=== PATIENT | female | born 1935 | race Caucasian/White ===

== ENCOUNTER → 2016-11-13 | Outpatient (CLI) | payer OTHER, BC | LOC: FIMAGING 10:47 | DX: Z12.31 Encounter for screening mammogram for malignant neoplasm of breast (principal) | CPT/HCPCS: G0202 ==

== ENCOUNTER → 2016-12-09 | Outpatient (CLI) | payer OTHER, BC | LOC: FIMAGING 11:46 | PROVIDERS: ATTEND Internal Medicine Critical Care Medicine | DX: R09.02 Hypoxemia (principal) ==

== ENCOUNTER 2017-09-24 13:49 | Emergency (ER) | payer OTHER, BC ==
[2017-09-24 13:56] VITALS: RESP 18; TEMP 98.1
--- NOTE | 2017-09-24 14:39 | EDPHY ---
H & P Stated Complaint: Cough x 2 mo;saw PCP several times;wants cxr - Personal History Current Tetanus Diphtheria and Acellular Pertussis (TDAP): Yes - Medical/Surgical History Hx Asthma: Yes Hx Chronic Respiratory Disease: Yes Hx Diabetes: No Hx Cardiac Disease: No Hx Renal Disease: No Hx Cirrhosis: No Hx Alcoholism: No Hx HIV/AIDS: No Hx Splenectomy or Spleen Trauma: No Other PMH: Pulmonary HTN, Hypothyroid, Oste-Rheumatoid Arthritis, Asthma, fibromyalgia - Social History Smoking Status: Former smoker <Paul Correa - Last Filed: 09/24/17 14:38> Source: Patient <Ulysses Gallego - Last Filed: 09/24/17 15:01> Time Seen by Provider: 09/24/17 14:38 Constitutional: Initial Vital Signs Temperature (C) 36.7 C 09/24/17 13:50 Heart Rate 84 09/24/17 13:50 Respiratory Rate 18 09/24/17 13:50 Blood Pressure 121/89 H 09/24/17 13:50 O2 Sat (%) 97 09/24/17 13:50 O2 Delivery Mode Nasal Cannula O2 (L/minute) 2.5 Allergies/Adverse Reactions: latex Allergy (Intermediate, Verified 09/24/17 13:49) Rash povidone-iodine [From Betadine] Allergy (Intermediate, Verified 09/24/17 13:49) Rash soap [From Betadine] Allergy (Intermediate, Verified 09/24/17 13:49) Rash Penicillins Allergy (Verified 09/24/17 13:49) rash, red and swelling Home Medications: Medication Instructions Recorded Eszopiclone [Lunesta] 3 mg PO HS 11/28/14 Furosemide [Lasix 20 MG (*)] 20 mg PO Q2D@11/28/14 Levothyroxine [Synthroid 112 mcg 112 mcg PO DAILY06 11/28/14 (*)] Potassium Cl [Klor-Con 10 meq (RX)] 10 meq PO Q2D@11/28/14 Spironolactone [Aldactone 25 MG 25 mg PO Q2D@11/28/14 (*)] traMADol [Ultram 50 mg (*)] 100 mg PO TID 11/28/14 Fluticasone/Salmeterol [Advair Hfa 12 gm IH 09/24/17 115-21 Mcg Inhaler] Tiotropium Inhaler [Spiriva 1 inh 09/24/17 Inhaler] Medical Decision Making <Paul Correa - Last Filed: 09/24/17 14:38> <Ulysses Gallego - Last Filed: 09/24/17 15:01> ED Course/Re-evaluation: CHIEF COMPLAINT: HISTORY OF PRESENT ILLNESS: must have 4 elements: Location, Quality, Severity , Duration, Timing, Context, Modifying Factors, Associated Signs and Symptoms REVIEW OF SYSTEMS: A 10 point review of systems was performed and is negative with the exception of the elements mentioned in the history of present illness. PHYSICAL EXAM: HR, BP, O2 Sat, RR. Temp noted General Appearance: Alert, well hydrated, appropriate, and non-toxic appearing. Head: Atraumatic without scalp tenderness or obvious injury Eyes: Pupils equal, round, reactive to light and accommodation, EOMI, no trauma , no injection. Ears: Clear bilaterally, no perforation, normal landmarks Nose: Atraumatic, no rhinorrhea, clear. Throat: There is no erythema or exudates, no lesions, normal tonsils, mucus membranes moist. Neck: Supple, 2+ carotid upstroke, nontender, no lymphadenopathy. Respiratory: No retractions, no distress, no wheezes, and no accessory muscle use. Lungs are clear to auscultation bilaterally. Cardiovascular: Regular rate and rhythm, no murmurs, rubs, or gallops. Bilateral carotid, radial, dorsalis pedis, and posterior tibial pulses intact. Good capillary refill all extremities. Gastrointestinal: Abdomen is soft, nontender, non-distended, no masses, no rebound, no guarding, no peritoneal signs. Musculoskeletal: Normal active ROM of all extremities, atraumatic. Neurological: Alert, appropriate, and interactive. The patient has normal DTRs and non-focal cranial nerves, motor, sensory, and cerebellar exam. Skin: No rashes, good turgor, no nodules on palpation. Past medical history: Past surgical history: Family history: Social history: DIAGNOSTICS/PROCEDURES/CRITICAL CARE TIME: DIFFERENTIAL DIAGNOSIS: MEDICAL DECISION MAKING: (Paul Correa) Departure <Paul Correa - Last Filed: 09/24/17 14:38> <Ulysses Gallego - Last Filed: 09/24/17 15:01> - Departure Referrals: Bernice Cotton MD [Primary Care Provider] - As per Instructions
[2017-09-24] MEDS ORDERED: NS 500 ML IV ONE (14:54)
[2017-09-24] MEDS ORDERED: IPRATROPIUM/ALBUTEROL 3 ML DEYVIAL IH ONE (15:00)
--- NOTE | 2017-09-24 15:02 | EDPHY ---
H & P Stated Complaint: Cough x 2 mo;saw PCP several times;wants cxr Time Seen by Provider: 09/24/17 14:38 HPI/ROS: HPI CHIEF COMPLAINT: Worsening cough x2 months HISTORY OF PRESENT ILLNESS: Patient very pleasant 81-year-old female she presents emergency room with worsening cough x2 months. She states she has been suffering from a cough for 2 months and has tried several rounds of antibiotic she initially was on azithromycin and completed that felt somewhat better, and then her symptoms returned of cough with productive sputum mainly clear but sometimes yellow no blood. She does endorse some chills and subjective fever at home. She states her cough has gotten worse over the last 2 weeks. Become more productive. Yellow in nature. She did try a trial Levaquin and prednisone that her issuing operator put her on however she stop this as she felt fatigued and depleted. She denies any chest pain. Past Medical History: COPD on oxygen 2 L. Past Surgical History: Osteoarthritis, knee surgery, left shoulder surgery Social History: Denies drugs alcohol tobacco. Remote history of tobacco use. Family History: Noncontributory ROS REVIEW OF SYSTEMS: A comprehensive 10 point review of systems is otherwise negative aside from elements mentioned in the history of present illness. Exam Constitutional appears well nontoxic triage nursing summary reviewed, vital signs reviewed, awake/alert. Eyes normal conjunctivae and sclera, EOMI, PERRLA. HENT normal inspection, atraumatic, moist mucus membranes, no epistaxis, neck supple/ no meningismus, no raccoon eyes. Respiratory bronchitic sounding cough on exam, faint wheezing bilaterally, normal breath sounds, no respiratory distress Cardiovascular rate normal, regular rhythm, no murmur, no edema, distal pulses normal. Gastrointestinal soft, non-tender, no rebound, no guarding, normal bowel sounds, no distension, no pulsatile mass. Genitourinary no CVA tenderness. Musculoskeletal bilateral lower extremity edema, no midline vertebral tenderness, full range of motion, no calf swelling, no tenderness of extremities , no meningismus, good pulses, neurovascularly intact. Skin pink, warm, & dry, no rash, skin atraumatic. Neurologic awake, alert and oriented x 3, AAOx3, moves all 4 extremities equally, motor intact, sensory intact, CN II-XII intact, normal cerebellar, normal vision, normal speech. Psychiatric normal mood/affect. Heme/Lymph/Immune no lymphadenopathy. Differential Diagnosis: Includes but is not limited to in a particular order bronchitis, reactive airway disease, pneumonia, CHF, pulmonary embolism Medical Decision Making: Plan for this patient IV establishment blood draw, chest x-ray two view to rule pneumonia, DuoNeb breathing treatment, re-evaluate. Re-evaluation: EKG interpretation by me on record in [facility] system. Impression time of EKG 1507, sinus rhythm rate of 79 left axis deviation present. No ST elevation. No ST depression. No significant T-wave abnormalities. No significant acute ischemia seen on this EKG. 1551: Re-examination at this time patient resting comfortably no acute distress. Her workup has been for bronchitis and a productive cough. The chest x-ray is unremarkable. There is no focal pneumonia. Chest x-ray and blood work reviewed with the patient. She would like to go home. Vital signs are stable. She has no ongoing hypoxia. Afebrile here. No white count. Will plan on placing on azithromycin, she also has albuterol inhaler at home, additionally place her on prednisone 60 mg for 5 days. Return precautions discussed with her she understands return if she develops worsening shortness of breath fever worsening cough. I do recommend she follows up with her issuing operator. I did recommend we try Levaquin however she states that she does not do well with Levaquin prefers azithromycin. Plan will be for azithromycin, prednisone. Close follow-up. Source: Patient - Personal History Current Tetanus Diphtheria and Acellular Pertussis (TDAP): Yes - Medical/Surgical History Hx Asthma: Yes Hx Chronic Respiratory Disease: Yes Hx Diabetes: No Hx Cardiac Disease: No Hx Renal Disease: No Hx Cirrhosis: No Hx Alcoholism: No Hx HIV/AIDS: No Hx Splenectomy or Spleen Trauma: No Other PMH: Pulmonary HTN, Hypothyroid, Oste-Rheumatoid Arthritis, Asthma, fibromyalgia - Social History Smoking Status: Former smoker Constitutional: Initial Vital Signs Temperature (C) 36.7 C 09/24/17 13:50 Heart Rate 84 09/24/17 13:50 Respiratory Rate 18 09/24/17 13:50 Blood Pressure 121/89 H 09/24/17 13:50 O2 Sat (%) 97 09/24/17 13:50 O2 Delivery Mode Nasal Cannula O2 (L/minute) 2.5 Allergies/Adverse Reactions: latex Allergy (Intermediate, Verified 09/24/17 13:49) Rash povidone-iodine [From Betadine] Allergy (Intermediate, Verified 09/24/17 13:49) Rash soap [From Betadine] Allergy (Intermediate, Verified 09/24/17 13:49) Rash Penicillins Allergy (Verified 09/24/17 13:49) rash, red and swelling Home Medications: Medication Instructions Recorded Eszopiclone [Lunesta] 3 mg PO HS 11/28/14 Furosemide [Lasix 20 MG (*)] 20 mg PO Q2D@09 11/28/14 Levothyroxine [Synthroid 112 mcg 112 mcg PO DAILY06 11/28/14 (*)] Potassium Cl [Klor-Con 10 meq (RX)] 10 meq PO Q2D@11/28/14 Spironolactone [Aldactone 25 MG 25 mg PO Q2D@09 11/28/14 (*)] traMADol [Ultram 50 mg (*)] 100 mg PO TID 11/28/14 Azithromycin [Zithromax] 250 mg PO DAILY #6 tab 09/24/17 Fluticasone/Salmeterol [Advair Hfa 12 gm 09/24/17 115-21 Mcg Inhaler] Tiotropium Inhaler [Spiriva 1 inh 09/24/17 Inhaler] predniSONE 60 mg PO DAILY #15 tab 09/24/17 Medical Decision Making - Diagnostics Imaging Results: Imaging Impressions Chest X-Ray 09/24/17 14:54 Impression: 1. Findings most consistent with airways disease are seen with no superimposed pneumonia identified. 2. See above report for additional findings. - Data Points Laboratory Results: Laboratory Results 09/24/17 15:12 09/24/17 15:12 09/24/17 09/24/17 09/24/17 15:12 15:12 15:12 WBC 8.73 10^3/uL 10^3/uL (3.80-9.50) RBC 4.28 10^6/uL 10^6/uL (4.18-5.33) Hgb 13.2 g/dL g/dL (12.6-16.3) Hct 38.8 % % (38.0-47.0) MCV 90.7 fL fL (81.5-99.8) MCH 30.8 pg pg (27.9-34.1) MCHC 34.0 g/dL g/dL (32.4-36.7) RDW 13.9 % % (11.5-15.2) Plt Count 236 10^3/uL 10^3/uL (150-400) MPV 9.2 fL fL (8.7-11.7) Neut % (Auto) 60.9 % % (39.3-74.2) Lymph % (Auto) 21.2 % % (15.0-45.0) [place] % (Auto) 13.3 % H % (4.5-13.0) Eos % (Auto) 3.3 % % (0.6-7.6) Baso % (Auto) 0.5 % % (0.3-1.7) Nucleat RBC Rel Count 0.0 % % (0.0-0.2) Absolute Neuts (auto) 5.32 10^3/uL 10^3/uL (1.70-6.50) Absolute Lymphs (auto) 1.85 10^3/uL 10^3/uL (1.00-3.00) Absolute Monos (auto) 1.16 10^3/uL H 10^3/uL (0.30-0.80) Absolute Eos (auto) 0.29 10^3/uL 10^3/uL (0.03-0.40) Absolute Basos (auto) 0.04 10^3/uL 10^3/uL (0.02-0.10) Absolute Nucleated RBC 0.00 10^3/uL 10^3/uL (0-0.01) Immature Gran % 0.8 % % (0.0-1.1) Immature Gran # 0.07 10^3/uL 10^3/uL (0.00-0.10) PT 13.3 SEC SEC (12.0-15.0) INR 0.99 (0.83-1.16) APTT 24.9 SEC SEC (23.0-38.0) Sodium 139 mEq/L mEq/L (135-145) Potassium 3.7 mEq/L mEq/L (3.5-5.2) Chloride 95 mEq/L L mEq/L (97-110) Carbon Dioxide 35 mEq/l H mEq/l (22-31) Anion Gap 9 mEq/L mEq/L (8-16) BUN 18 mg/dL mg/dL (7-23) Creatinine 0.7 mg/dL mg/dL (0.6-1.0) Estimated GFR > 60 Glucose 98 mg/dL mg/dL (70-100) Calcium 8.7 mg/dL mg/dL (8.5-10.4) Magnesium 1.8 mg/dL mg/dL (1.6-2.3) Creatine Kinase 38 IU/L IU/L (0-156) CK-MB (CK-2) Fraction 1.07 ng/mL ng/mL (0.00-3.19) Troponin I 0.020 ng/mL ng/mL (0.000-0.034) NT-Pro-B Natriuret Pep 457 pg/mL H pg/mL (0-450) Medications Given: Discontinued Medications Albuterol/Ipratropium (Duoneb) 3 ml IH EDNOW ONE Stop: 09/24/17 15:01 Last Admin: 09/24/17 15:26 Dose: 3 ml Sodium Chloride (Ns) 500 mls @ 1,000 mls/hr IV EDNOW ONE PRN Reason: Protocol Stop: 09/24/17 15:23 Last Admin: 09/24/17 15:26 Dose: 500 mls Departure - Departure Disposition: Home, Routine, Self-Care Clinical Impression: Bronchitis Condition: Good Instructions: Acute Bronchitis (ED) Additional Instructions: 1. Return emergency room if he develops worsening shortness of breath, pain, fever vomiting or not feeling well. 2. Antibiotics as prescribed. 3. Follow up with your primary care or issuing operator. Referrals: Bernice Cotton MD [Primary Care Provider] - As per Instructions Prescriptions: Azithromycin [Zithromax] 250 mg PO DAILY #6 tab predniSONE 60 mg PO DAILY #15 tab
--- NOTE | 2017-09-24 15:09 | CPEKG ---
Heart Rate: 79 RR Interval: 759 P-R Interval: 148 QRSD Interval: 90 QT Interval: 392 QTC Interval: 450 P [place]: 75 QRS [place]: -49 T Wave [place]: 45 EKG Severity - OTHERWISE NORMAL ECG - EKG Impression: SINUS RHYTHM EKG Impression: LEFT AXIS DEVIATION Electronically Signed By: Ulysses Gallego 24-Sep-2017 23:13:41
[2017-09-24 15:20] LABS: PLATELET COUNT 236 10^3/uL (150-400)
[2017-09-24 15:30] LABS: INR 0.99 (0.83-1.16); PROTIME(PATIENT) 13.3 SEC (12.0-15.0)
[2017-09-24 15:33] LABS: CREATINE KINASE 38 IU/L (0-156)
[2017-09-24] MEDS ORDERED: AZITHROMYCIN 250 MG TAB PO ONE (15:46)
[2017-09-24] MEDS ORDERED: predniSONE 20 MG TAB PO ONE (15:46)
[2017-09-24 16:09] VITALS: BP 150/80; PULSE 85; O2SAT 90
== END 2017-09-24 16:16 | disposition home or self-care (01) ==
DX: J20.9 Acute bronchitis, unspecified (principal); I10 Essential (primary) hypertension; J44.9 Chronic obstructive pulmonary disease, unspecified; E86.9 Volume depletion, unspecified; Z87.891 Personal history of nicotine dependence; Z91.040 Latex allergy status
CPT/HCPCS: 71046; 93005; 99285; J7512

== ENCOUNTER → 2017-10-21 | Outpatient (CLI) | payer OTHER, BC | LOC: FIMAGING 13:26 | PROVIDERS: ATTEND Internal Medicine | DX: R60.0 Localized edema (principal) ==

== ENCOUNTER → 2017-12-08 | Outpatient (CLI) | payer OTHER, BC | LOC: FIMAGING 12:03 | PROVIDERS: ATTEND Internal Medicine | DX: Z12.31 Encounter for screening mammogram for malignant neoplasm of breast (principal) ==

== ENCOUNTER → 2018-04-05 | Outpatient (CLI) | payer OTHER, BC | LOC: BMCIMAGING 11:13 | PROVIDERS: ATTEND Internal Medicine Rheumatology | DX: M41.86 Other forms of scoliosis, lumbar region (principal); M43.16 Spondylolisthesis, lumbar region; M53.86 Other specified dorsopathies, lumbar region; M51.36 Other intervertebral disc degeneration, lumbar region; M53.3 Sacrococcygeal disorders, not elsewhere classified ==

== ENCOUNTER → 2018-05-13 | Outpatient (CLI) | payer OTHER, BC | LOC: BHFA 10:00 | PROVIDERS: ATTEND Internal Medicine Cardiovascular Disease | DX: R60.9 Edema, unspecified (principal) ==

== ENCOUNTER 2018-07-15 14:48 | Inpatient (IN) | payer OTHER, BC ==
--- NOTE | 2018-07-15 15:10 | CPEKG ---
Test Reason : OPEN Blood Pressure : / mmHG Vent. Rate : 085 BPM Atrial Rate : 084 BPM P-R Int : 141 ms QRS Dur : 079 ms QT Int : 357 ms P-R-T Axes : 070 -66 069 degrees QTc Int : 425 ms Sinus rhythm Ventricular premature complex Probable left atrial enlargement Inferior infarct, old Probable anteroseptal infarct, old Confirmed by José Miguel Thomson ([id number]) on 07/15/2018 3:10:15 PM Referred By: Confirmed By:José Miguel Thomson
--- NOTE | 2018-07-15 15:17 | EDPHY ---
H & P Stated Complaint: increasing extremity edema/hr has been faster than nl/sl sob Time Seen by Provider: 07/15/18 15:02 HPI/ROS: CHIEF COMPLAINT: Increasing edema HISTORY OF PRESENT ILLNESS: The patient is an 82-year-old female with a history of pulmonary hypertension, COPD asthma on 1-3 L oxygen at home at baseline. She reports that over the last 2-3 months she has had increasing edema in her lower legs. She has had longstanding edema in her left leg but has grown significantly worse over the last 3 months. She now has a bilaterally a little worse greater in the left and right. She had an echo done in March that she reports was normal. She denies any history of liver or kidney disease. She has been taking Lasix and spironolactone daily. No fevers. No trauma. No erythema, redness, wounds or drainage. She states that it is not painful. It does not hurt to ambulate. Only hurts to palpate or wear tight clothing. At home the patient states that her pulse oxygenation was not working correctly and that it said her heart rate was 130 and her sats were low. She states however that she did not have any symptoms and did not feel ill or any worse than usual. Here triage in in the room she is not tachycardic and not hypoxic. She states that she feels like she does not need to be here. Severity: Moderate Modifying factors: None REVIEW OF SYSTEMS: Constitutional: denies: chills, fever, recent illness, recent injury EENTM: denies: blurred vision, double vision, nose congestion Respiratory: denies: cough, shortness of breath Cardiac: denies: chest pain, irregular heart rate, lightheadedness, palpitations Gastrointestinal/Abdominal: denies: abdominal pain, diarrhea, nausea, vomiting, blood streaked stools Genitourinary: denies: dysuria, frequency, hematuria, pain Musculoskeletal: See HPI Skin: denies: lesions, rash, jaundice, bruising Neurological: denies: headache, numbness, paresthesia, tingling, dizziness, weakness Hematologic/Lymphatic: denies: blood clots, easy bleeding, easy bruising Immunologic/allergic: denies: HIV/AIDS, transplant 10 systems reviewed and negative except as noted EXAM: GENERAL: Well-appearing, well-nourished and in no acute distress. HEAD: Atraumatic, normocephalic. EYES: Pupils equal round and reactive to light, extraocular movements intact, sclera anicteric, conjunctiva are normal. ENT: TMs normal, nares patent, oropharynx clear without exudates. Moist mucous membranes. NECK: Normal range of motion, supple without lymphadenopathy or JVD. LUNGS: Breath sounds clear to auscultation bilaterally and equal. No wheezes rales or rhonchi. HEART: Regular rate and rhythm without murmurs, rubs or gallops. ABDOMEN: Soft, nontender, normoactive bowel sounds. No guarding, no rebound. No masses appreciated. BACK: No CVA tenderness, no spinal tenderness, step-offs or deformities EXTREMITIES: Bilateral lower extremity 2+ pitting edema left greater than right , no significant erythema, no obvious wound. Normal range of motion. No clubbing or cyanosis. NEUROLOGICAL: Cranial nerves II through XII grossly intact. Normal speech, normal gait. 5/5 strength, normal movement in all extremities, normal sensation , normal reflexes PSYCH: Normal mood, normal affect. SKIN: Warm, dry, normal turgor, no visible rashes or lesions. Source: Patient Exam Limitations: No limitations - Personal History Current Tetanus Diphtheria and Acellular Pertussis (TDAP): Yes - Medical/Surgical History Hx Asthma: Yes Hx Chronic Respiratory Disease: Yes Hx Diabetes: No Hx Cardiac Disease: No Hx Renal Disease: No Hx Cirrhosis: No Hx Alcoholism: No Hx HIV/AIDS: No Hx Splenectomy or Spleen Trauma: No Other PMH: Pulmonary HTN, Hypothyroid, Oste-Rheumatoid Arthritis, Asthma, fibromyalgia copd - Family History Significant Family History: No pertinent family hx - Social History Smoking Status: Former smoker Alcohol Use: Sober Drug Use: None Constitutional: Initial Vital Signs Temperature (C) 36.3 C 07/15/18 14:54 Heart Rate 87 07/15/18 14:54 Respiratory Rate 18 07/15/18 14:54 Blood Pressure 113/65 07/15/18 14:54 O2 Sat (%) 96 07/15/18 14:54 O2 Delivery Mode Nasal Cannula O2 (L/minute) 2 Allergies/Adverse Reactions: latex Allergy (Intermediate, Verified 09/24/17 13:49) Rash povidone-iodine [From Betadine] Allergy (Intermediate, Verified 09/24/17 13:49) Rash soap [From Betadine] Allergy (Intermediate, Verified 09/24/17 13:49) Rash Penicillins Allergy (Verified 09/24/17 13:49) rash, red and swelling Home Medications: Medication Instructions Recorded Eszopiclone [Lunesta] 3 mg PO HS 11/28/14 Furosemide [Lasix 20 MG (*)] 20 mg PO DAILY 11/28/14 Potassium Cl [Klor-Con 10 meq (RX)] 10 meq PO Q2D@09 11/28/14 Spironolactone [Aldactone 25 MG 25 mg PO DAILY 11/28/14 (*)] traMADol [Ultram 50 mg (*)] 100 mg PO TID 11/28/14 Carboxymethylcellulose Sodium 1 drop EACHEYE PRN PRN 07/15/18 [Thera Tears] Diclofenac Sodium 1% [Voltaren Gel 1 diana TP QID PRN 07/15/18 (*)] Levothyroxine [Synthroid 125 mcg 125 mcg PO DAILY06 07/15/18 (*)] Levothyroxine [Synthroid 25 mcg 25 mcg PO WESA@06 07/15/18 (*)] Multivitamins [Multivitamin (*)] 1 each PO DAILY@18 07/15/18 Sodium Cl Nasal [[place] (*)] 1 spray E[place]ARE PRN PRN 07/15/18 Umeclidinium Brm/Vilanterol Tr 1 each IH DAILY 07/15/18 [Anoro Ellipta 62.5-25 Mcg INH] Medical Decision Making - Diagnostics EKG Interpretation: An EKG obtained and was read and documented in trace view. Please see trace view for full reading and report. Sinus rhythm with PVC, no acute ischemic changes similar to previous Imaging Results: Imaging Impressions Extremity Venous Study 07/15/18 15:16 Impression: No evidence of deep vein thrombosis. José Miguel Thomson was notified of these findings by telephone at 4:08 PM on 07/15/2018 Chest X-Ray 07/15/18 15:17 Impression: 1. New patchy right middle lobe consolidation: pneumonia versus atelectasis. 2. No obvious failure. Imaging: Discussed imaging studies w/ steward/stewardess second Radiologist ED Course/Re-evaluation: Recommended admission the hospital for what is likely right heart failure in the setting of longstanding pulmonary hypertension and no increasing peripheral edema. No significant pulmonary edema appreciated. Will give a dose of Lasix and have the hospitalist service for admission. Do not suspect pneumonia. No cough. No fever. No shortness of breath. Patient and family agree with this plan. Differential Diagnosis: Partial list of the Differential diagnosis considered include but were not limited to; right heart failure, DVT, CHF, renal disease and although unlikely based on the history and physical exam, I also considered obstruction, ischemia. - Data Points Laboratory Results: Laboratory Results 07/15/18 15:14 07/15/18 15:14 07/15/18 07/15/18 07/15/18 16:40 15:14 15:14 WBC 6.97 10^3/uL 10^3/uL (3.80-9.50) RBC 4.74 10^6/uL 10^6/uL (4.18-5.33) Hgb 14.4 g/dL g/dL (12.6-16.3) Hct 44.1 % % (38.0-47.0) MCV 93.0 fL fL (81.5-99.8) MCH 30.4 pg pg (27.9-34.1) MCHC 32.7 g/dL g/dL (32.4-36.7) RDW 13.2 % % (11.5-15.2) Plt Count 238 10^3/uL 10^3/uL (150-400) MPV 9.7 fL fL (8.7-11.7) Neut % (Auto) 67.2 % % (39.3-74.2) Lymph % (Auto) 20.9 % % (15.0-45.0) [place] % (Auto) 8.6 % % (4.5-13.0) Eos % (Auto) 2.3 % % (0.6-7.6) Baso % (Auto) 0.6 % % (0.3-1.7) Nucleat RBC Rel Count 0.0 % % (0.0-0.2) Absolute Neuts (auto) 4.68 10^3/uL 10^3/uL (1.70-6.50) Absolute Lymphs (auto) 1.46 10^3/uL 10^3/uL (1.00-3.00) Absolute Monos (auto) 0.60 10^3/uL 10^3/uL (0.30-0.80) Absolute Eos (auto) 0.16 10^3/uL 10^3/uL (0.03-0.40) Absolute Basos (auto) 0.04 10^3/uL 10^3/uL (0.02-0.10) Absolute Nucleated RBC 0.00 10^3/uL 10^3/uL (0-0.01) Immature Gran % 0.4 % % (0.0-1.1) Immature Gran # 0.03 10^3/uL 10^3/uL (0.00-0.10) PT INR APTT Sodium 133 mEq/L L mEq/L (135-145) Potassium 3.6 mEq/L mEq/L (3.5-5.2) Chloride 95 mEq/L L mEq/L (97-110) Carbon Dioxide 32 mEq/l H mEq/l (22-31) Anion Gap 6 mEq/L mEq/L (6-14) BUN 18 mg/dL mg/dL (7-23) Creatinine 0.9 mg/dL mg/dL (0.6-1.0) Estimated GFR 60 Glucose 92 mg/dL mg/dL (70-100) Calcium 9.8 mg/dL mg/dL (8.5-10.4) Total Bilirubin Conjugated Bilirubin Unconjugated Bilirubin AST ALT Alkaline Phosphatase NT-Pro-B Natriuret Pep 1640 pg/mL H pg/mL (0-450) Total Protein Albumin Lipase 62 IU/L IU/L (23-300) Urine Color YELLOW Urine Appearance CLEAR Urine pH 5.0 (5.0-7.5) Ur Specific [place] 1.018 (1.002-1.030) Urine Protein NEGATIVE (NEGATIVE) Urine Ketones NEGATIVE (NEGATIVE) Urine Blood NEGATIVE (NEGATIVE) Urine Nitrate NEGATIVE (NEGATIVE) Urine Bilirubin NEGATIVE (NEGATIVE) Urine Urobilinogen NEGATIVE EU EU (0.2-1.0) Ur Leukocyte Esterase 2+ H (NEGATIVE) Urine RBC 1-3 /hpf /hpf (0-3) Urine WBC 25-50 /hpf H /hpf (0-3) Ur Epithelial Cells TRACE /lpf /lpf (NONE-1+) Urine Glucose NEGATIVE (NEGATIVE) 07/15/18 07/15/18 15:14 14:59 WBC RBC Hgb Hct MCV MCH MCHC RDW Plt Count MPV Neut % (Auto) Lymph % (Auto) [place] % (Auto) Eos % (Auto) Baso % (Auto) Nucleat RBC Rel Count Absolute Neuts (auto) Absolute Lymphs (auto) Absolute Monos (auto) Absolute Eos (auto) Absolute Basos (auto) Absolute Nucleated RBC Immature Gran % Immature Gran # PT 13.8 SEC SEC (12.0-15.0) INR 1.04 (0.83-1.16) APTT 26.5 SEC SEC (23.0-38.0) Sodium Potassium Chloride Carbon Dioxide Anion Gap BUN Creatinine Estimated GFR Glucose Calcium Total Bilirubin 0.6 mg/dL mg/dL (0.1-1.4) Conjugated Bilirubin 0.3 mg/dL mg/dL (0.0-0.5) Unconjugated Bilirubin 0.3 mg/dL mg/dL (0.0-1.1) AST 28 IU/L IU/L (14-46) ALT 19 IU/L IU/L (9-52) Alkaline Phosphatase 119 IU/L IU/L (38-126) NT-Pro-B Natriuret Pep Total Protein 8.6 g/dL H g/dL (6.3-8.2) Albumin 4.0 g/dL g/dL (3.5-5.0) Lipase Urine Color Urine Appearance Urine pH Ur Specific [place] Urine Protein Urine Ketones Urine Blood Urine Nitrate Urine Bilirubin Urine Urobilinogen Ur Leukocyte Esterase Urine RBC Urine WBC Ur Epithelial Cells Urine Glucose Medications Given: Discontinued Medications Furosemide (Lasix Injection) 40 mg IVP EDNOW ONE Stop: 07/15/18 16:55 Last Admin: 07/15/18 17:09 Dose: 40 mg Departure - Departure Disposition: [facility] Acute Clinical Impression: Lower extremity edema Condition: Fair
[2018-07-15 15:28] LABS: PLATELET COUNT 238 10^3/uL (150-400)
[2018-07-15 15:55] LABS: INR 1.04 (0.83-1.16); PROTIME(PATIENT) 13.8 SEC (12.0-15.0)
[2018-07-15] MEDS ORDERED: FUROSEMIDE 40 MG/4 ML VIAL IVP ONE (16:54)
[2018-07-15] MEDS ORDERED: ONDANSETRON 4 MG/2 ML VIAL IVP PRN (17:51)
[2018-07-15] MEDS ORDERED: ONDANSETRON DISINTEGRATING 4 MG TAB PO PRN (17:51)
[2018-07-15] MEDS ORDERED: ACETAMINOPHEN 325 MG TAB PO PRN (17:51)
[2018-07-15] MEDS ORDERED: DICLOFENAC SODIUM 1% 100 GM GEL TP PRN (17:52)
[2018-07-15] MEDS ORDERED: SODIUM CL NASAL 45 ML BTL EACHNARE PRN (17:52)
[2018-07-15] MEDS ORDERED: CARBOXYMETHYLCELLULOSE 0.5% 0.4 ML DROPERETTE EACHEYE PRN (18:35)
--- NOTE | 2018-07-15 20:56 | PDGENHP ---
History and Physical - Chief Complaint leg swelling - History of Present Illness 82yo F with history of COPD on chronic oxygen (3L), psoriatic arthritis, chronic leg edema (L>R), giant cell arteritis no longer on steroids presents with acute worsening of her chronic leg edema. Left leg has been particularly bothersome over last few days. It is red and hot. She denies fevers or chills. No change in urination. No shortness of breath or increase in O2 needs. No chest pain. She has had issues with swelling for years. She reports being somewhat sedentary for the last few weeks after her carpal tunnel release in mid -June. TTE from this fall showed normal ventricular function, mild MR, moderate TR, and RVSP 36. In the ED, she had an elevated BNP and significant leg swelling. She was given 40mg IV lasix. Case discussed with ED physician José Miguel Thomson. History Information - Allergies/Home Medication List Allergies/Adverse Reactions: latex Allergy (Intermediate, Verified 09/24/17 13:49) Rash povidone-iodine [From Betadine] Allergy (Intermediate, Verified 09/24/17 13:49) Rash soap [From Betadine] Allergy (Intermediate, Verified 09/24/17 13:49) Rash Penicillins Allergy (Verified 09/24/17 13:49) rash, red and swelling Home Medications: Eszopiclone [Lunesta] 3 mg PO HS 11/28/14 [Last Taken 07/14/18] Furosemide [Lasix 20 MG (*)] 20 mg PO DAILY 11/28/14 [Last Taken 07/15/18] Potassium Cl [Klor-Con 10 meq (RX)] 10 meq PO Q2D@09 11/28/14 [Last Taken ] Spironolactone [Aldactone 25 MG (*)] 25 mg PO DAILY 11/28/14 [Last Taken ] traMADol [Ultram 50 mg (*)] 100 mg PO TID 11/28/14 [Last Taken 07/15/18] Carboxymethylcellulose Sodium [Thera Tears] 1 drop EACHEYE PRN PRN 07/15/18 [ Last Taken Unknown] Diclofenac Sodium 1% [Voltaren Gel (*)] 1 diana TP QID PRN 07/15/18 [Last Taken Unknown] Levothyroxine [Synthroid 125 mcg (*)] 125 mcg PO DAILY06 07/15/18 [Last Taken ] Levothyroxine [Synthroid 25 mcg (*)] 25 mcg PO WESA@06 07/15/18 [Last Taken 08/30] Multivitamins [Multivitamin (*)] 1 each PO DAILY@18 07/15/18 [Last Taken ] Sodium Cl Nasal [[place] (*)] 1 spray EACHNARE PRN PRN 07/15/18 [Last Taken Unknown] Umeclidinium Brm/Vilanterol Tr [Anoro Ellipta 62.5-25 Mcg INH] 1 each IH DAILY 07/15/18 [Last Taken 07/15/18] I have personally reviewed and updated: family history, medical history, social history, surgical history - Past Medical History Additional medical history: giant cell arteritis (07/2013, now off prednisone), psoriatic/rheumatoid arthritis (HLA27 +), thyroid cancer s/p resection, HTN, GERD, COPD, chronic hypoxemia on 3L, ? 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, Review of Systems Review of Systems: ROS: 10pt was reviewed & negative except for what was stated in HPI & below Physical Exam Physical Exam: Temp Pulse Resp BP Pulse Ox 36.5 C 80 18 116/68 98 07/15/18 20:00 07/15/18 20:00 07/15/18 20:00 07/15/18 20:00 07/15/18 20:00 O2 (L/minute) 3 Constitutional: no apparent distress, appears nourished, not in pain Eyes: PERRL, anicteric sclera, EOMI Ears, Nose, Mouth, Throat: moist mucous membranes Cardiovascular: regular rate and rhythym, no murmur, rub, or gallop, edema (L>R) , No JVD Respiratory: no respiratory distress, no rales or rhonchi, clear to auscultation Gastrointestinal: normoactive bowel sounds, soft, non-tender abdomen, no palpable masses Genitourinary: no bladder fullness, no bladder tenderness Skin: erythema (left leg up to [place]), other (chronic venous stasis changes bilateral legs) Neurologic: AAOx3 Psychiatric: interacting appropriately, not anxious, not encephalopathic, thought process linear Lab Data & Imaging Review 07/15/18 15:14 07/15/18 15:14 WBC 6.97 10^3/uL (3.80-9.50) 07/15/18 15:14 RBC 4.74 10^6/uL (4.18-5.33) 07/15/18 15:14 Hgb 14.4 g/dL (12.6-16.3) 07/15/18 15:14 Hct 44.1 % (38.0-47.0) 07/15/18 15:14 MCV 93.0 fL (81.5-99.8) 07/15/18 15:14 MCH 30.4 pg (27.9-34.1) 07/15/18 15:14 MCHC 32.7 g/dL (32.4-36.7) 07/15/18 15:14 RDW 13.2 % (11.5-15.2) 07/15/18 15:14 Plt Count 238 10^3/uL (150-400) 07/15/18 15:14 MPV 9.7 fL (8.7-11.7) 07/15/18 15:14 Neut % (Auto) 67.2 % (39.3-74.2) 07/15/18 15:14 Lymph % (Auto) 20.9 % (15.0-45.0) 07/15/18 15:14 [place] % (Auto) 8.6 % (4.5-13.0) 07/15/18 15:14 Eos % (Auto) 2.3 % (0.6-7.6) 07/15/18 15:14 Baso % (Auto) 0.6 % (0.3-1.7) 07/15/18 15:14 Nucleat RBC Rel Count 0.0 % (0.0-0.2) 07/15/18 15:14 Absolute Neuts (auto) 4.68 10^3/uL (1.70-6.50) 07/15/18 15:14 Absolute Lymphs (auto) 1.46 10^3/uL (1.00-3.00) 07/15/18 15:14 Absolute Monos (auto) 0.60 10^3/uL (0.30-0.80) 07/15/18 15:14 Absolute Eos (auto) 0.16 10^3/uL (0.03-0.40) 07/15/18 15:14 Absolute Basos (auto) 0.04 10^3/uL (0.02-0.10) 07/15/18 15:14 Absolute Nucleated RBC 0.00 10^3/uL (0-0.01) 07/15/18 15:14 Immature Gran % 0.4 % (0.0-1.1) 07/15/18 15:14 Immature Gran # 0.03 10^3/uL (0.00-0.10) 07/15/18 15:14 PT 13.8 SEC (12.0-15.0) 07/15/18 15:14 INR 1.04 (0.83-1.16) 07/15/18 15:14 APTT 26.5 SEC (23.0-38.0) 07/15/18 15:14 Sodium 133 mEq/L (135-145) L 07/15/18 15:14 Potassium 3.6 mEq/L (3.5-5.2) 07/15/18 15:14 Chloride 95 mEq/L (97-110) L 07/15/18 15:14 Carbon Dioxide 32 mEq/l (22-31) H 07/15/18 15:14 Anion Gap 6 mEq/L (6-14) 07/15/18 15:14 BUN 18 mg/dL (7-23) 07/15/18 15:14 Creatinine 0.9 mg/dL (0.6-1.0) 07/15/18 15:14 Estimated GFR 60 07/15/18 15:14 Glucose 92 mg/dL (70-100) 07/15/18 15:14 Calcium 9.8 mg/dL (8.5-10.4) 07/15/18 15:14 Total Bilirubin 0.6 mg/dL (0.1-1.4) 07/15/18 14:59 Conjugated Bilirubin 0.3 mg/dL (0.0-0.5) 07/15/18 14:59 Unconjugated Bilirubin 0.3 mg/dL (0.0-1.1) 07/15/18 14:59 AST 28 IU/L (14-46) 07/15/18 14:59 ALT 19 IU/L (9-52) 07/15/18 14:59 Alkaline Phosphatase 119 IU/L (38-126) 07/15/18 14:59 NT-Pro-B Natriuret Pep 1640 pg/mL (0-450) H 07/15/18 15:14 Total Protein 8.6 g/dL (6.3-8.2) H 07/15/18 14:59 Albumin 4.0 g/dL (3.5-5.0) 07/15/18 14:59 Lipase 62 IU/L (23-300) 07/15/18 15:14 Urine Color YELLOW 07/15/18 16:40 Urine Appearance CLEAR 07/15/18 16:40 Urine pH 5.0 (5.0-7.5) 07/15/18 16:40 Ur Specific [place] 1.018 (1.002-1.030) 07/15/18 16:40 Urine Protein NEGATIVE (NEGATIVE) 07/15/18 16:40 Urine Ketones NEGATIVE (NEGATIVE) 07/15/18 16:40 Urine Blood NEGATIVE (NEGATIVE) 07/15/18 16:40 Urine Nitrate NEGATIVE (NEGATIVE) 07/15/18 16:40 Urine Bilirubin NEGATIVE (NEGATIVE) 07/15/18 16:40 Urine Urobilinogen NEGATIVE EU (0.2-1.0) 07/15/18 16:40 Ur Leukocyte Esterase 2+ (NEGATIVE) H 07/15/18 16:40 Urine RBC 1-3 /hpf (0-3) 07/15/18 16:40 Urine WBC 25-50 /hpf (0-3) H 07/15/18 16:40 Ur Epithelial Cells TRACE /lpf (NONE-1+) 07/15/18 16:40 Urine Glucose NEGATIVE (NEGATIVE) 07/15/18 16:40 Assessment & Plan Assessment: 82yo F with history of COPD on chronic oxygen (3L), psoriatic arthritis, chronic leg edema (L>R), giant cell arteritis no longer on steroids presents with acute worsening of her chronic leg edema. Plan: 1. Acute on chronic leg edema: L>R. I am suspicious for cellulitis in her left leg with underlying chronic venous insufficiency. Somewhat recent TTE normal but with clinical change and elevated BNP will recheck. No significant pulmonary hypertension on last echo. No protein in urine. LFTs ok. - s/p 40mg IV lasix in ED. Re-dose in AM pending response - TTE - Abx per below - Patient not wanting compression stockings 2. LLE cellulitis: Not septic - Vancomycin IV (allergy to penicillins) 3. Hyponatremia: Mild. Monitor with diuresis. 4. COPD with chronic hypoxemia: No exacerbation. At baseline 2-3L. Continue home inhalers. 5. H/o psoriatic arthritis: Takes nsaids for this. 6. H/o giant cell arteritis: Has not been on steroids in years. 7. HTN: - Continue home spironolactone VTE ppx: LMWH Code: full Diet: low salt Dispo: Admit under observation
[2018-07-15] MEDS: traMADol 50 MG TAB PO SCH (21:00)
[2018-07-15] MEDS: ZOLPIDEM TARTRATE 5 MG TAB PO SCH (21:01)
[2018-07-15] MEDS: VANCOMYCIN 750 MG in D5W 150 ML IV SCH (21:01)
[2018-07-16 04:46] LABS: PLATELET COUNT 211 10^3/uL (150-400)
[2018-07-16] MEDS ORDERED: LEVOTHYROXINE 25 MCG TAB PO SCH (06:00)
[2018-07-16] MEDS: LEVOTHYROXINE 125 MCG TAB PO SCH (07:17)
[2018-07-16] MEDS: SPIRONOLACTONE 25 MG TAB PO SCH (07:17)
[2018-07-16] MEDS: traMADol 50 MG TAB PO SCH ×3 (07:17→21:55)
[2018-07-16] MEDS: ENOXAPARIN 40 MG/0.4 ML SYR SC SCH (09:23)
[2018-07-16] MEDS: Umeclidinium Brm/Vilanterol Tr [Anoro Ellipta 62.5-25 Mcg Inh] IH SCH (09:27)
--- NOTE | 2018-07-16 11:05 | ECHO ---
[email or web address] [address] Main: [phone] Fax: Transthoracic Echocardiogram Name: OKSANA CHEEMA MR#: [id number] Study Date: 07/16/2018 Study Time: 08:07 AM Date of : 1935 Age: 82 year(s) Height: 152.4 cm (60 in.) Weight: 55.34 kg (122 lb.) BSA: 1.51 m2 Gender: Female Examination: Echo Indication: Eval ventricular function/valves/RVSP Image Quality: Contrast: Requested by: Carlos Thayer BP: 120 mmHg/70 mmHg Heart Rate: Rhythm: Indication: Eval ventricular function/valves/RVSP Procedure Staff Mainframe Consultant: Adali Bravo RDCS Reading Physician: Figueroa Wilkerson MD Requesting Provider: Conclusions: Normal size left ventricle. Mild concentric LV hypertrophy. EF is 83 %. No regional wall motion abnormality. Normal size right ventricle. Mild mitral valve regurgitation is present. The aortic valve is tri-leaflet. Trivial aortic valve regurgitation. Mild tricuspid regurgitation is present. The pulmonary artery pressure is mildly increased. RVSP is 39-44mmHG.. Measurements: Chambers Valvular Assessment AV/MV Valvular Assessment TV/PV Normal Normal Normal Name Value Range Name Value Range Name Value Range Ao Carmen (MM): 2.8 cm (2.2 cm-3.7 AV Vmax: 1.30 m/s (1 m/s-1.7 TR Vmax: 2.93 mm/s ( - ) cm) m/s) TR PGmax: 34 mmHg ( - ) IVSd (2D): 1.0 cm (0.6 cm-1.1 AV meanP mmHg ( - ) syst. PAP: 39 mmHg ( - ) cm) MV E Vmax: 0.83 m/s ( - ) LVDd (2D): 4.5 cm (3.9 cm-5.3 MV A Vmax: 1.02 m/s ( - ) cm) MV E/A: 0.81 ( - ) LVPWd (2D): 1.0 cm ( - ) LVEF (MOD4): 83 % (>=55 %) Continued Measurements: Chambers Valvular Assessment AV/MV Valvular Assessment TV/PV Name Value Name Value Name Value Patient: OKSANA CHEEMA Study Date: 07/16/2018 Page 1 of 2 08:07 AM LADs: 3.6 cm MV E' Septal: 0.05 m/s CVP (est.): 5 mmHg LADs Lon.5 cm MV E/E' Septal: 15.50 LA Area: 15.2 cm2 MV E/E' Lateral: 14.70 LA Volume: 39 ml LA Volume Index: 25.8 ml/m2 Additional Vessels Name Value Ao Ascendin.6 cm Findings: Left Ventricle: Normal size left ventricle. Mild concentric LV hypertrophy. Normal global systolic LV function. EF is 83 %. No regional wall motion abnormality. Diastolic dysfunction is present. . Right Ventricle: Normal size right ventricle. Left Atrium: The left atrium is normal in size. Right Atrium: The right atrium is normal in size. Mitral Valve: Mild mitral annular calcification. Mild mitral valve regurgitation is present. Aortic Valve: The aortic valve is normal in appearance and function. The aortic valve is tri-leaflet. Trivial aortic valve regurgitation. Tricuspid Valve: The tricuspid valve is normal in appearance and function. Mild tricuspid regurgitation is present. The pulmonary artery pressure is mildly increased. RVSP is 39-44mmHG.. Pulmonic Valve: The pulmonic valve is normal in appearance and function. Trivial to mild pulmonic valve regurgitation. Aorta: The aorta is normal. Pericardium: Trivial anterior pericardial effusion with echogenicity within.. (No Signature Object) Patient: OKSANA CHEEMA Study Date: 07/16/2018 Page 2 of 2 08:07 AM [id number]
--- NOTE | 2018-07-16 14:21 | HOSPPROG ---
Hospitalist Progress Note Assessment/Plan: 82yo F with history of COPD on chronic oxygen (3L), psoriatic arthritis, chronic leg edema (L>R), giant cell arteritis no longer on steroids presents with acute worsening of her chronic leg edema. 1. Acute on chronic leg edema: L>R. I am suspicious for cellulitis in her left leg with underlying chronic venous insufficiency. Somewhat recent TTE normal but with clinical change and elevated BNP will recheck. No significant pulmonary hypertension on last echo. No protein in urine. LFTs ok. - restart home Lasix -f/u TTE 2. LLE cellulitis: Not septic - Vancomycin IV (allergy to penicillins) 3. Hyponatremia: Mild. Monitor with diuresis. 4. COPD with chronic hypoxemia: No exacerbation. At baseline 2-3L. Continue home inhalers. 5. H/o psoriatic arthritis: Takes nsaids for this. 6. H/o giant cell arteritis: Has not been on steroids in years. 7. HTN: - Continue home spironolactone VTE ppx: LMWH Code: full Diet: low salt Plan: doing better cont Vancomycin restart home lasix await TTE Subjective: no cp or sob. leg swelling is better Objective: Vital Signs Temp Pulse Resp BP Pulse Ox 36.7 C 81 10 L 120/70 95 07/16/18 08:00 07/16/18 08:00 07/16/18 08:00 07/16/18 08:00 07/16/18 08:00 Laboratory Results 07/16/18 03:54 07/16/18 03:54 07/15/18 07/16/18 07/17/18 05:59 05:59 05:59 Intake Total 955 Output Total 875 Balance 80 PT 13.8 SEC (12.0-15.0) 07/15/18 15:14 INR 1.04 (0.83-1.16) 07/15/18 15:14 - Physical Exam Constitutional: no apparent distress Eyes: PERRL Ears, Nose, Mouth, Throat: moist mucous membranes, hearing normal Cardiovascular: regular rate and rhythym, edema Respiratory: no respiratory distress, no rales or rhonchi, clear to auscultation Gastrointestinal: normoactive bowel sounds Skin: warm, erythema Neurologic: AAOx3 Psychiatric: interacting appropriately, not anxious, not encephalopathic Lymph, Heme, Immunologic: No petechiae ICD10 Worksheet Patient Problems: Problems Problem Status Onset Lower extremity edema Acute Osteoarthritis of knee Acute
[2018-07-16] MEDS: FUROSEMIDE 20 MG TAB PO SCH (15:52)
--- NOTE | 2018-07-16 18:59 | PDMN ---
Medical Necessity Medical necessity: Pt meets IP criteria as of 07/15/2018 per and MCG M-70 ( cellulitis); est los > 2 mn for ongoing tx and management of LLE cellulitis in the setting of acute on chronic LLE edema, hyponatremia, and COPD with chronic hypoxemia; requiring IV diuretics, IV ABX, and further work up.
[2018-07-16] MEDS: VANCOMYCIN 750 MG in D5W 150 ML IV SCH (19:28)
--- NOTE | 2018-07-16 19:39 | ASMTCMCOM ---
CM Note CM Note Notes: Reviewed chart. Pt admitted for worsening edema. History includes COPD with chronic oxygen use at 3L, psoriatic/RA arthritis, giant cell arthritis, thyroid cancer, s/p resection, chronic leg edema, HTN, GERD, multiple myeloma and several surgeries. Pt is single and lives in [facility]. PT/OT cleared pt for discharge. PT recommends use of a 4 wheel walker. Anticipate pt will likely discharge home independently back to [facility] when medically stable. CM will continue to follow for any potential needs. Discharge Plan: Likely home independent to [facility] Date Signed: 07/16/2018 07:39 PM Electronically Signed By:Elana Chong RN
[2018-07-16] MEDS: ZOLPIDEM TARTRATE 5 MG TAB PO SCH (21:55)
[2018-07-17 07:26] VITALS: BP 119/69
[2018-07-17] MEDS: traMADol 50 MG TAB PO SCH (08:06)
[2018-07-17] MEDS: LEVOTHYROXINE 125 MCG TAB PO SCH (08:06)
[2018-07-17] MEDS: Umeclidinium Brm/Vilanterol Tr [Anoro Ellipta 62.5-25 Mcg Inh] IH SCH (09:30)
[2018-07-17] MEDS: FUROSEMIDE 20 MG TAB PO SCH ×2 (09:52→09:55)
[2018-07-17] MEDS: SPIRONOLACTONE 25 MG TAB PO SCH ×2 (09:52→09:55)
[2018-07-17] MEDS: ENOXAPARIN 40 MG/0.4 ML SYR SC SCH (09:52)
[2018-07-17] MEDS ORDERED: DOXYCYCLINE HYCLATE 100 MG CAP/TAB PO SCH (10:30)
--- NOTE | 2018-07-17 11:37 | ASMTLACE ---
LACE Length of stay for Answers: 1 day current admission Acuity / Level of Answers: No Care: Did the patient have an inpatient admission? Comorbidities - select Answers: Any tumor (including all that apply lymphoma or leukemia) Chronic pulmonary disease Other Notes: Giant cell arthritis, RA, chronic leg edema, multiple myeloma # of Emergency department Answers: 1-2 visits in the last 6 months Score: 7 Date Signed: 07/17/2018 11:36 AM Electronically Signed By:Elizabeth Mercedes RN
--- NOTE | 2018-07-17 11:39 | ASMTDCNOTE ---
Case Management Discharge Discharge Order Complete? Answers: Yes Patient to Obtain Answers: via Family Medications Transportation Arranged Answers: Family/Friends Discharge Comments Notes: Medically cleared for discharge to home independnetly. Date Signed: 07/17/2018 11:38 AM Electronically Signed By:Elizabeth Mercedes RN
--- NOTE | 2018-07-17 14:01 | PDDCSUM ---
Discharge Summary Discharge Summary: 82yo F with history of COPD on chronic oxygen (3L), psoriatic arthritis, chronic leg edema (L>R), giant cell arteritis no longer on steroids presents with acute worsening of her chronic leg edema. Admitted and treated with Vancomycin. Significantly better and now transitioning to Doxycycline. PCN allergy noted. Euvolemic on d/c, no changes to home diuretics She will f/u with her PCP next week. DDX: 1. Acute on chronic leg edema: 2. LLE cellulitis: 3. Hyponatremia: resolved 4. COPD with chronic hypoxemia: No exacerbation. At baseline 2-3L. Continue home inhalers. 5. H/o psoriatic arthritis: Takes nsaids for this. 6. H/o giant cell arteritis: Has not been on steroids in years. 7. HTN: - Continue home spironolactone Exam: NAD AAOX3 RRR CTA B MILD PEDAL EDEMA, LEFT LE ERYTHEMA IS SIGNIFICANTLY IMPROVED MEDS: SEE MED REC F/U: PER ABOVE TOTAL TIME SPENT ON D/C IS 35 MINS. D/W NURSING AND PT.
== END 2018-07-17 12:51 | disposition home or self-care (01) | DRG 603 ==
LOC: OBSVTOIN 17:52 → F2W 18:25
PROVIDERS: ADMIT Internal Medicine; ATTEND Internal Medicine
DX: L03.116 Cellulitis of left lower limb (principal); E87.1 Hypo-osmolality and hyponatremia; J44.9 Chronic obstructive pulmonary disease, unspecified; I27.20 Pulmonary hypertension, unspecified; M06.9 Rheumatoid arthritis, unspecified; L40.50 Arthropathic psoriasis, unspecified; M31.6 Other giant cell arteritis; K21.9 Gastro-esophageal reflux disease without esophagitis; Z99.81 Dependence on supplemental oxygen; Z85.850 Personal history of malignant neoplasm of thyroid; Z96.612 Presence of left artificial shoulder joint; Z96.653 Presence of artificial knee joint, bilateral; Z87.891 Personal history of nicotine dependence
CPT/HCPCS: 96374; 97116-GP; 97161-GP; 97166-GO; J1650; J1940; J3370

== ENCOUNTER → 2018-09-08 | Outpatient (CLI) | payer OTHER, BC | LOC: FIMAGING 11:28 | PROVIDERS: ATTEND Internal Medicine | DX: R22.42 Localized swelling, mass and lump, left lower limb (principal) ==

== ENCOUNTER → 2018-09-21 | Outpatient (CLI) | payer OTHER, BC | LOC: BHFA 09:00 | PROVIDERS: ATTEND Internal Medicine Cardiovascular Disease | DX: R06.02 Shortness of breath (principal) | CPT/HCPCS: 78452; 93017; A9500; J2785 ==

== ENCOUNTER 2018-12-01 03:52 | Observation (INO) | payer OTHER, BC ==
--- NOTE | 2018-12-01 04:06 | EDPHY ---
H & P Stated Complaint: dizzy Time Seen by Provider: 12/01/18 04:02 HPI/ROS: Chief Complaint: Lightheaded, cough, shortness of breath HPI: 83-year-old woman with a history of COPD, chronic leg edema L>R, on Lasix 3 days a week, got up to go to the bathroom this morning. Patient was having a coughing episode and went to get some cough medicine. Upon standing and while walking to the bathroom she felt very lightheaded and felt like she might pass out. She did not lose consciousness. She did have some associated shortness of breath. No chest pain. No palpitations. She does have a history of similar episodes in the past. These were attributed to her diuretics and she recently had her diuretics dropped from daily to Wednesday, Wednesday, Wednesday. Patient also has a history of hypokalemia and has been put on potassium supplements. She was seen here recently for similar episode and they attributed to her Lasix. No fevers or chills. No urinary urgency or frequency. Patient is feeling improved since the arrival of EMS but she is not stood up or ambulated. Patient wears 3 L of oxygen chronically, no changes recently. ROS: 10 systems were reviewed and were negative except those elements noted in the HPI. Social History: No smoking, no alcohol, no recreational drug use Family History: non-contributory Physical Exam: Gen: Awake, Alert, No Distress HEENT: Nose: no rhinorrhea Eyes: PERRLA, EOMI Mouth: Moist mucosa Neck: Supple, no JVD Chest: nontender, lungs clear to auscultation Heart: S1, S2 normal, no murmur Abd: Soft, non-tender, no guarding Back: no CVA tenderness, no midline tenderness Ext: no edema, non-tender Skin: no rash Neuro: CN II-XII intact, Sensation grossly intact, Strength 5/5 in bilateral upper and lower extremities - Personal History Current Tetanus Diphtheria and Acellular Pertussis (TDAP): Yes - Medical/Surgical History Hx Asthma: Yes Hx Chronic Respiratory Disease: Yes Hx Diabetes: No Hx Cardiac Disease: No Hx Renal Disease: No Hx Cirrhosis: No Hx Alcoholism: No Hx HIV/AIDS: No Hx Splenectomy or Spleen Trauma: No Other PMH: Pulmonary HTN, Hypothyroid, Oste-Rheumatoid Arthritis, Asthma, fibromyalgia copd - Social History Smoking Status: Former smoker Constitutional: Initial Vital Signs Temperature (C) 36.6 C 12/01/18 03:57 Heart Rate 92 12/01/18 03:57 Respiratory Rate 16 12/01/18 03:57 Blood Pressure 120/75 12/01/18 03:57 O2 Sat (%) 96 12/01/18 03:57 O2 Delivery Mode Room Air O2 (L/minute) 3 Allergies/Adverse Reactions: latex Allergy (Intermediate, Verified 12/01/18 04:03) Rash povidone-iodine [From Betadine] Allergy (Intermediate, Verified 12/01/18 04:03) Rash soap [From Betadine] Allergy (Intermediate, Verified 12/01/18 04:03) Rash Penicillins Allergy (Verified 12/01/18 04:03) rash, red and swelling Home Medications: Medication Instructions Recorded Eszopiclone [Lunesta] 3 mg PO HS 11/28/14 Furosemide [Lasix 20 MG (*)] 20 mg PO DAILY 11/28/14 Potassium Cl [Klor-Con 10 meq (RX)] 10 meq PO Q2D@09 11/28/14 Spironolactone [Aldactone 25 MG 25 mg PO DAILY 11/28/14 (*)] traMADol [Ultram 50 mg (*)] 100 mg PO TID 11/28/14 Carboxymethylcellulose Sodium 1 drop EACHEYE PRN PRN 07/15/18 [Thera Tears] Diclofenac Sodium 1% [Voltaren Gel 1 diana TP QID PRN 07/15/18 (*)] Levothyroxine [Synthroid 125 mcg 125 mcg PO DAILY06 07/15/18 (*)] Levothyroxine [Synthroid 25 mcg 25 mcg PO WESA@06 07/15/18 (*)] Multivitamins [Multivitamin (*)] 1 each PO DAILY@18 07/15/18 Sodium Cl Nasal [[place] (*)] 1 spray EACHNARE PRN PRN 07/15/18 Umeclidinium Brm/Vilanterol Tr 1 each IH DAILY 07/15/18 [Anoro Ellipta 62.5-25 Mcg INH] Doxycycline Hyclate [Vibramycin 100 mg PO BID #20 capsule 07/17/18 100 MG (*)] Medical Decision Making - Diagnostics EKG Interpretation: ECG time 4:08 a.m., sinus rhythm with a rate 95. Normal axis, left atrial enlargement, left anterior fascicular block. Unifocal occasional PVCs. No acute ischemia. ED Course/Re-evaluation: 83-year-old woman with an episode of dizziness this morning. Initial troponin is 0.29. No acute ischemia on her ECG. Will wait for the remainder of her laboratory studies. Patient will require admission for serial troponins and further evaluation. I have discussed Dr. Khanna, hospitalist. He will admit to her service for further care. - Data Points Laboratory Results: Laboratory Results 12/01/18 04:00 12/01/18 04:00 12/01/18 12/01/18 12/01/18 04:05 04:00 04:00 WBC 8.27 10^3/uL 10^3/uL (3.80-9.50) RBC 5.09 10^6/uL 10^6/uL (4.18-5.33) Hgb 15.5 g/dL g/dL (12.6-16.3) Hct 45.9 % % (38.0-47.0) MCV 90.2 fL fL (81.5-99.8) MCH 30.5 pg pg (27.9-34.1) MCHC 33.8 g/dL g/dL (32.4-36.7) RDW 13.4 % % (11.5-15.2) Plt Count 237 10^3/uL 10^3/uL (150-400) MPV 10.9 fL fL (8.7-11.7) Neut % (Auto) 64.8 % % (39.3-74.2) Lymph % (Auto) 23.6 % % (15.0-45.0) [place] % (Auto) 8.8 % % (4.5-13.0) Eos % (Auto) 2.2 % % (0.6-7.6) Baso % (Auto) 0.4 % % (0.3-1.7) Nucleat RBC Rel Count 0.0 % % (0.0-0.2) Absolute Neuts (auto) 5.36 10^3/uL 10^3/uL (1.70-6.50) Absolute Lymphs (auto) 1.95 10^3/uL 10^3/uL (1.00-3.00) Absolute Monos (auto) 0.73 10^3/uL 10^3/uL (0.30-0.80) Absolute Eos (auto) 0.18 10^3/uL 10^3/uL (0.03-0.40) Absolute Basos (auto) 0.03 10^3/uL 10^3/uL (0.02-0.10) Absolute Nucleated RBC 0.00 10^3/uL 10^3/uL (0-0.01) Immature Gran % 0.2 % % (0.0-1.1) Immature Gran # 0.02 10^3/uL 10^3/uL (0.00-0.10) Sodium 134 mEq/L L mEq/L (135-145) Potassium 4.0 mEq/L mEq/L (3.5-5.2) Chloride 87 mEq/L L mEq/L (97-110) Carbon Dioxide 34 mEq/l H mEq/l (22-31) Anion Gap 13 mEq/L mEq/L (6-14) BUN 23 mg/dL mg/dL (7-23) Creatinine 0.8 mg/dL mg/dL (0.6-1.0) Estimated GFR > 60 Glucose 96 mg/dL mg/dL (70-100) Calcium 9.8 mg/dL mg/dL (8.5-10.4) POC Troponin I 0.29 ng/mL H ng/mL (0.00-0.08) Point of Care Test Results: Chemistry 12/01/18 04:05 POC Troponin I 0.29 ng/mL H ng/mL (0.00-0.08) Departure - Departure Disposition: [facility] Inpatient Acute Clinical Impression: Dizziness, Heart failure Condition: Fair
[2018-12-01 04:23] LABS: PLATELET COUNT 237 10^3/uL (150-400)
[2018-12-01] MEDS ORDERED: ACETAMINOPHEN 325 MG TAB PO PRN (04:32)
[2018-12-01] MEDS ORDERED: ONDANSETRON 4 MG/2 ML VIAL IVP PRN (04:32)
[2018-12-01] MEDS ORDERED: ONDANSETRON DISINTEGRATING 4 MG TAB PO PRN (04:32)
--- NOTE | 2018-12-01 04:37 | CPEKG ---
Test Reason : OPEN Blood Pressure : / mmHG Vent. Rate : 095 BPM Atrial Rate : 090 BPM P-R Int : 155 ms QRS Dur : 083 ms QT Int : 379 ms P-R-T Axes : 057 -79 058 degrees QTc Int : 477 ms Sinus rhythm Multiple premature complexes, vent & supraven Left atrial enlargement Left anterior fascicular block Low voltage, extremity leads Minimal ST elevation, lateral leads Confirmed by Ian Barclay ([id number]) on 12/01/2018 4:36:22 AM Referred By: Ian Barclay Confirmed By:Ian Barclay
--- NOTE | 2018-12-01 05:04 | PDGENHP ---
History and Physical - Chief Complaint Dizziness - History of Present Illness 83 yo F w/ hx of COPD, dCHF, CHRF, and chronic leg edema presents with dizziness. The patient got up to use the bathroom tonight when she felt dizzy and lightheaded upon standing. She laid back down in bed but continued to feel poorly so she called EMS to be brought to the ED. She denies chest pain during the episode. She saw her PCP Dr. Navarrete on 11/24 to discuss the same issue. At that time her diuretic dose was decreased from qD to MWF as her symptoms are likely orthostatic. She did not have any additional dizzy spells after that until today. In the ED her VS are stable but her troponin is elevated at 0.29 and BNP is 4960, which is more than double the value from September of this year. She appears euvolemic on exam, however. Her ECG demonstrates sinus rhythm but with significant PAC, PVC burden. At the time of my evaluation she is asymptomatic. She is being admitted to the PCU for further evaluation. Case discussed with ED physician Dr. Barclay; records reviewed and summarized above. History Information - Allergies/Home Medication List Allergies/Adverse Reactions: latex Allergy (Intermediate, Verified 12/01/18 04:03) Rash povidone-iodine [From Betadine] Allergy (Intermediate, Verified 12/01/18 04:03) Rash soap [From Betadine] Allergy (Intermediate, Verified 12/01/18 04:03) Rash Penicillins Allergy (Verified 12/01/18 04:03) rash, red and swelling Home Medications: Eszopiclone [Lunesta] 3 mg PO HS 11/28/14 [Last Taken 07/14/18] Furosemide [Lasix 20 MG (*)] 20 mg PO DAILY 11/28/14 [Last Taken 07/15/18] Potassium Cl [Klor-Con 10 meq (RX)] 10 meq PO Q2D@09 11/28/14 [Last Taken ] Spironolactone [Aldactone 25 MG (*)] 25 mg PO DAILY 11/28/14 [Last Taken ] traMADol [Ultram 50 mg (*)] 100 mg PO TID 11/28/14 [Last Taken 07/15/18] Carboxymethylcellulose Sodium [Thera Tears] 1 drop EACHEYE PRN PRN 07/15/18 [ Last Taken Unknown] Diclofenac Sodium 1% [Voltaren Gel (*)] 1 diana TP QID PRN 07/15/18 [Last Taken Unknown] Levothyroxine [Synthroid 125 mcg (*)] 125 mcg PO DAILY06 07/15/18 [Last Taken ] Levothyroxine [Synthroid 25 mcg (*)] 25 mcg PO WESA@06 07/15/18 [Last Taken 08/30] Multivitamins [Multivitamin (*)] 1 each PO DAILY@18 07/15/18 [Last Taken ] Sodium Cl Nasal [[place] (*)] 1 spray EACHNARE PRN PRN 07/15/18 [Last Taken Unknown] Umeclidinium Brm/Vilanterol Tr [Anoro Ellipta 62.5-25 Mcg INH] 1 each IH DAILY 07/15/18 [Last Taken 07/15/18] I have personally reviewed and updated: family history, medical history - Past Medical History Additional medical history: giant cell arteritis (07/2013, now off prednisone), psoriatic/rheumatoid arthritis (HLA27 +), thyroid cancer s/p resection, HTN, GERD, COPD, chronic hypoxemia on 3L, ? 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, Review of Systems Review of Systems: ROS: 10pt was reviewed & negative except for what was stated in HPI & below Physical Exam Physical Exam: Temp Pulse Resp BP Pulse Ox 36.6 C 90 16 112/85 H 96 12/01/18 04:53 12/01/18 04:53 12/01/18 04:53 12/01/18 04:53 12/01/18 04:53 O2 (L/minute) 3 Constitutional: no apparent distress, chronically ill appearing Eyes: PERRL, EOMI Ears, Nose, Mouth, Throat: moist mucous membranes, no oral mucosal ulcers Cardiovascular: no murmur, rub, or gallop, irregularly irregular Respiratory: no respiratory distress, clear to auscultation Gastrointestinal: normoactive bowel sounds, soft, non-tender abdomen Skin: warm, normal color Musculoskeletal: full muscle strength, no muscle tenderness Neurologic: AAOx3, CN II-XII Intact Psychiatric: interacting appropriately, not anxious Lab Data & Imaging Review 12/01/18 04:00 12/01/18 04:00 WBC 8.27 10^3/uL (3.80-9.50) 12/01/18 04:00 RBC 5.09 10^6/uL (4.18-5.33) 12/01/18 04:00 Hgb 15.5 g/dL (12.6-16.3) 12/01/18 04:00 Hct 45.9 % (38.0-47.0) 12/01/18 04:00 MCV 90.2 fL (81.5-99.8) 12/01/18 04:00 MCH 30.5 pg (27.9-34.1) 12/01/18 04:00 MCHC 33.8 g/dL (32.4-36.7) 12/01/18 04:00 RDW 13.4 % (11.5-15.2) 12/01/18 04:00 Plt Count 237 10^3/uL (150-400) 12/01/18 04:00 MPV 10.9 fL (8.7-11.7) 12/01/18 04:00 Neut % (Auto) 64.8 % (39.3-74.2) 12/01/18 04:00 Lymph % (Auto) 23.6 % (15.0-45.0) 12/01/18 04:00 Cotton % (Auto) 8.8 % (4.5-13.0) 12/01/18 04:00 Eos % (Auto) 2.2 % (0.6-7.6) 12/01/18 04:00 Baso % (Auto) 0.4 % (0.3-1.7) 12/01/18 04:00 Nucleat RBC Rel Count 0.0 % (0.0-0.2) 12/01/18 04:00 Absolute Neuts (auto) 5.36 10^3/uL (1.70-6.50) 12/01/18 04:00 Absolute Lymphs (auto) 1.95 10^3/uL (1.00-3.00) 12/01/18 04:00 Absolute Monos (auto) 0.73 10^3/uL (0.30-0.80) 12/01/18 04:00 Absolute Eos (auto) 0.18 10^3/uL (0.03-0.40) 12/01/18 04:00 Absolute Basos (auto) 0.03 10^3/uL (0.02-0.10) 12/01/18 04:00 Absolute Nucleated RBC 0.00 10^3/uL (0-0.01) 12/01/18 04:00 Immature Gran % 0.2 % (0.0-1.1) 12/01/18 04:00 Immature Gran # 0.02 10^3/uL (0.00-0.10) 12/01/18 04:00 Sodium 134 mEq/L (135-145) L 12/01/18 04:00 Potassium 4.0 mEq/L (3.5-5.2) 12/01/18 04:00 Chloride 87 mEq/L (97-110) L 12/01/18 04:00 Carbon Dioxide 34 mEq/l (22-31) H 12/01/18 04:00 Anion Gap 13 mEq/L (6-14) 12/01/18 04:00 BUN 23 mg/dL (7-23) 12/01/18 04:00 Creatinine 0.8 mg/dL (0.6-1.0) 12/01/18 04:00 Estimated GFR > 60 12/01/18 04:00 Glucose 96 mg/dL (70-100) 12/01/18 04:00 Calcium 9.8 mg/dL (8.5-10.4) 12/01/18 04:00 POC Troponin I 0.29 ng/mL (0.00-0.08) H 12/01/18 04:05 NT-Pro-B Natriuret Pep 4960 pg/mL (0-450) H 12/01/18 04:00 Visualized and Interpreted EKG results: Yes EKG Interpretation: Positive for: normal sinsus rhythm, other (PACs, PVCs) Assessment & Plan Assessment: 83 yo F w/ hx of COPD, dCHF, CHRF, and chronic leg edema presents with dizziness. Plan: 1. Dizziness - Symptoms consistent with orthostasis as they occurred upon standing from bed. However, arrhythmia, ACS, and CHF are other possibilities. - Observe in PCU - Monitor on telemetry 2. Elevated troponin - Troponin 0.29 on admission. Patient denies any recent episodes of chest pain. It is possible this represents demand ischemia, possibly from CHF or undiagnosed arrhythmia. - Monitor on telemetry - Trend cardiac enzymes - Cardiology consult placed in [facility] 3. Chronic diastolic heart failure - Last TTE in July was essentially normal with mildly increased RVSP (39-44 mm Hg). She has been on torsemide for several months for chronic lower extremity edema, which is now resolved. Her diuretic dose was changed from daily to MWF one week ago by PCP due to orthostasis symptoms. Her BNP is elevated today (4960) but she appears euvolemic on exam. - Will hold off on IV diuresis for now noting orthostatic presentation - TTE ordered - Cardiology consultation placed 4. COPD, CHRF - On 3 L/min O2 chronically, currently stable on the same. - Continue home medications pending reconciliation - Continue O2 3 L/min via NC 5. Hx temporal cell arteritis - No longer on treatment for this. 6. Psoriatic arthritis - NSAIDs PRN as an outpatient. 7. Hypothyroid - Continue LTX Diet - NPO pending cardiology evaluation Code - Full Ppx - LMWH Dispo - Admit under observation status
[2018-12-01] MEDS ORDERED: traMADol 50 MG TAB PO PRN (05:28)
[2018-12-01] MEDS ORDERED: LEVOTHYROXINE 125 MCG TAB PO ONE (05:28)
[2018-12-01] MEDS: traMADol 50 MG TAB PO PRN ×2 (06:22→14:06)
[2018-12-01] MEDS ORDERED: ENOXAPARIN 40 MG/0.4 ML SYR SC SCH (09:00)
--- NOTE | 2018-12-01 11:13 | PDCARCONS ---
Cardiology Consult Reason for Consult: Elevation in troponin Chief Complaint: Dizziness Requesting Physician: Balaji History of Present Illness: 83-year-old female followed by our heart failure service admitted with an episode of dizziness. Patient was in her usual state of good health. She went to sleep at approximately 1:00 a.m.. She woke up about an hour later with a cough. This progressed to dizziness and dyspnea. She became anxious and notified help at her assisted care situation. The activated 911. She was brought to the hospital. Initial laboratory data was notable for a mild elevation in troponin I am asked to comment. This morning she is free of chest pain. She is resting flat in bed without shortness of breath. She has had chronic peripheral edema up to the knee which is well controlled with diuresis. She has a known history of diastolic heart failure and has been managed by Dr. Johnson. Workup has included an echocardiogram done in July which showed left ventricular hypertrophy with preserved systolic function. There were no valvular abnormalities to speak of. She had a negative nuclear stress test at that time without ischemic burden and overall preserved LV function. She has no prior history of myocardial infarction. She has no history of cardiac dysrhythmia. She has no history of valvular heart disease. She has been compliant with her diuretics and dietary intake of salt. She has relatively limited in her activities of daily living. She does no vigorous activity. She is enjoying good quality of life. Recent data shows an EKG with low voltage across the precordium. There are no dynamic ST-T changes compared to prior EKGs concerning for acute ischemia. Echocardiogram done today showed continued presence of left ventricular hypertrophy without regional wall motion abnormalities. There has been no change in normal valvular function. Telemetry has been unremarkable. Review of her outpatient records showed that there has been discussion regarding biopsy right left heart catheterization for evaluation of potential infiltrative cardiomyopathies. At last visit this was deferred till later this summer. History Information - Allergies/Home Medication List Allergies/Adverse Reactions: latex Allergy (Intermediate, Verified 12/01/18 04:03) Rash povidone-iodine [From Betadine] Allergy (Intermediate, Verified 12/01/18 04:03) Rash soap [From Betadine] Allergy (Intermediate, Verified 12/01/18 04:03) Rash Penicillins Allergy (Verified 12/01/18 04:03) rash, red and swelling Home Medications: Eszopiclone [Lunesta] 3 mg PO HS 11/28/14 [Last Taken 11/30/18] Furosemide [Lasix 20 MG (*)] 20 mg PO MWF@11/28/14 [Last Taken 11/30/18] Potassium Cl [Klor-Con 10 meq (RX)] 10 meq PO DAILY 11/28/14 [Last Taken ] Spironolactone [Aldactone 25 MG (*)] 25 mg PO MWF@11/28/14 [Last Taken ] traMADol [Ultram 50 mg (*)] 100 mg PO TID 11/28/14 [Last Taken 11/30/18 21:00] Carboxymethylcellulose Sodium [Thera Tears] 1 drop EACHEYE PRN PRN 07/15/18 [ Last Taken Unknown] Diclofenac Sodium 1% [Voltaren Gel (*)] 1 diana TP QID PRN 07/15/18 [Last Taken Unknown] Levothyroxine [Synthroid 125 mcg (*)] 125 mcg PO DAILY06 07/15/18 [Last Taken ] Levothyroxine [Synthroid 25 mcg (*)] 25 mcg PO WESA@06 07/15/18 [Last Taken ] Multivitamins [Multivitamin (*)] 1 each PO DAILY@18 07/15/18 [Last Taken ] Sodium Cl Nasal [[place] (*)] 1 spray EACHNARE PRN PRN 07/15/18 [Last Taken Unknown] Umeclidinium Brm/Vilanterol Tr [Anoro Ellipta 62.5-25 Mcg INH] 1 each IH DAILY 07/15/18 [Last Taken 11/30/18] Fluticasone Nasal [Flonase Nasal [place] (RX)] 2 sprays NASAL DAILY 12/01/18 [ Last Taken 11/30/18] I have personally reviewed and updated: family history, medical history, social history, surgical history Past Medical History: - Social History Smoking Status: Former smoker Physical Exam Physical Exam: Temp Pulse Resp BP Pulse Ox 36.8 C 85 16 108/58 L 98 12/01/18 07:30 12/01/18 07:30 12/01/18 07:30 12/01/18 07:30 12/01/18 07:30 O2 (L/minute) 3 Constitutional: no apparent distress Eyes: PERRL Ears, Nose, Mouth, Throat: moist mucous membranes Cardiovascular: regular rate and rhythym, No JVD Peripheral Pulses: 1+: carotid (R), carotid (L), femoral (R), femoral (L), dorsalis-pedis (R), dorsalis-pedis (L) Respiratory: no respiratory distress, no rales or rhonchi Gastrointestinal: normoactive bowel sounds, soft, non-tender abdomen, no palpable masses Genitourinary: no bladder fullness Skin: warm, rash Musculoskeletal: No asymmetric calves Neurologic: AAOx3, No facial droop Psychiatric: interacting appropriately, not anxious Lymph, Heme, Immunologic: no cervical LAD, no supraclavicular LAD Lab and Imaging 12/01/18 04:00 12/01/18 04:00 WBC 8.27 10^3/uL (3.80-9.50) 12/01/18 04:00 RBC 5.09 10^6/uL (4.18-5.33) 12/01/18 04:00 Hgb 15.5 g/dL (12.6-16.3) 12/01/18 04:00 Hct 45.9 % (38.0-47.0) 12/01/18 04:00 MCV 90.2 fL (81.5-99.8) 12/01/18 04:00 MCH 30.5 pg (27.9-34.1) 12/01/18 04:00 MCHC 33.8 g/dL (32.4-36.7) 12/01/18 04:00 RDW 13.4 % (11.5-15.2) 12/01/18 04:00 Plt Count 237 10^3/uL (150-400) 12/01/18 04:00 MPV 10.9 fL (8.7-11.7) 12/01/18 04:00 Neut % (Auto) 64.8 % (39.3-74.2) 12/01/18 04:00 Lymph % (Auto) 23.6 % (15.0-45.0) 12/01/18 04:00 [place] % (Auto) 8.8 % (4.5-13.0) 12/01/18 04:00 Eos % (Auto) 2.2 % (0.6-7.6) 12/01/18 04:00 Baso % (Auto) 0.4 % (0.3-1.7) 12/01/18 04:00 Nucleat RBC Rel Count 0.0 % (0.0-0.2) 12/01/18 04:00 Absolute Neuts (auto) 5.36 10^3/uL (1.70-6.50) 12/01/18 04:00 Absolute Lymphs (auto) 1.95 10^3/uL (1.00-3.00) 12/01/18 04:00 Absolute Monos (auto) 0.73 10^3/uL (0.30-0.80) 12/01/18 04:00 Absolute Eos (auto) 0.18 10^3/uL (0.03-0.40) 12/01/18 04:00 Absolute Basos (auto) 0.03 10^3/uL (0.02-0.10) 12/01/18 04:00 Absolute Nucleated RBC 0.00 10^3/uL (0-0.01) 12/01/18 04:00 Immature Gran % 0.2 % (0.0-1.1) 12/01/18 04:00 Immature Gran # 0.02 10^3/uL (0.00-0.10) 12/01/18 04:00 Sodium 134 mEq/L (135-145) L 12/01/18 04:00 Potassium 4.0 mEq/L (3.5-5.2) 12/01/18 04:00 Chloride 87 mEq/L (97-110) L 12/01/18 04:00 Carbon Dioxide 34 mEq/l (22-31) H 12/01/18 04:00 Anion Gap 13 mEq/L (6-14) 12/01/18 04:00 BUN 23 mg/dL (7-23) 12/01/18 04:00 Creatinine 0.8 mg/dL (0.6-1.0) 12/01/18 04:00 Estimated GFR > 60 12/01/18 04:00 Glucose 96 mg/dL (70-100) 12/01/18 04:00 Calcium 9.8 mg/dL (8.5-10.4) 12/01/18 04:00 POC Troponin I 0.29 ng/mL (0.00-0.08) H 12/01/18 04:05 Troponin I 0.337 ng/mL (0.000-0.034) H 12/01/18 09:03 NT-Pro-B Natriuret Pep 4960 pg/mL (0-450) H 12/01/18 04:00 Urine Color YELLOW 12/01/18 06:38 Urine Appearance HAZY 12/01/18 06:38 Urine pH 5.0 (5.0-7.5) 12/01/18 06:38 Ur Specific [place] 1.011 (1.002-1.030) 12/01/18 06:38 Urine Protein NEGATIVE (NEGATIVE) 12/01/18 06:38 Urine Ketones NEGATIVE (NEGATIVE) 12/01/18 06:38 Urine Blood NEGATIVE (NEGATIVE) 12/01/18 06:38 Urine Nitrate NEGATIVE (NEGATIVE) 12/01/18 06:38 Urine Bilirubin NEGATIVE (NEGATIVE) 12/01/18 06:38 Urine Urobilinogen NEGATIVE EU (0.2-1.0) 12/01/18 06:38 Ur Leukocyte Esterase 1+ (NEGATIVE) H 12/01/18 06:38 Urine RBC 1-3 /hpf (0-3) 12/01/18 06:38 Urine WBC 10-15 /hpf (0-3) H 12/01/18 06:38 Ur Epithelial Cells TRACE /lpf (NONE-1+) 12/01/18 06:38 Urine Glucose NEGATIVE (NEGATIVE) 12/01/18 06:38 Echocardiogram: Echocardiogram shows left ventricular hypertrophy without regional wall motion abnormalities. ECG shows sinus rhythm with low voltage across the precordium. No dynamic ST-T changes noted. A/P Assessment: Impression: 83-year-old female with diastolic heart failure progressive in the last several months with worsening peripheral edema managed well with diuretic therapy. Elevation in troponin, elevation in brain atretic peptide, LVH, low voltage on the EKG suggest potential infiltrative process. Event last night likely post-tussive in nature. At this point she appears to be euvolemic and well compensated. The question of whether not right left heart catheterization/ biopsy makes sense at this point or we should continue with her current plan of follow-up with Dr. Johnson in the late summer make sense. I will discuss the case with him. There is no evidence of acute coronary syndrome based on echo, clinical history, EKG despite elevation in troponin. At this point I think she is safe to be discharged from the hospital with outpatient follow-up. Review of Systems Review of Systems: Past Medical History PMH: - Personal History Current Tetanus Diphtheria and Acellular Pertussis (TDAP): Yes - Medical/Surgical History Hx Asthma: Yes Hx Chronic Respiratory Disease: Yes Hx Cardiac Disease: No Hx Diabetes: No Hx Renal Disease: No Hx Alcoholism: No Hx Cirrhosis: No Hx HIV/AIDS: No Hx Splenectomy or Spleen Trauma: No Other PMH: Pulmonary HTN, Hypothyroid, Oste-Rheumatoid Arthritis, Asthma, fibromyalgia copd - Social History Smoking Status: Former smoker Additional Social History:
[2018-12-01 12:03] VITALS: BP 126/73
--- NOTE | 2018-12-01 12:37 | ECHO ---
[email or web address] [address] [address] Main: [phone] Echocardiography Examination Transthoracic Name: OKSANA CHEEMA MR#: [id number] Study Date: 12/01/2018 Study Time: 08:45 AM Date of : 1935 Age: 83 year(s) Height: 149.9 cm (59 in.) Weight: 63.5 kg (140 lb.) BSA: 1.58 m2 Gender: Female Examination: Echo Contrast: Image Quality: Good Rhythm: Heart Rate: 82 bpm BP: 108 mmHg/58 mmHg Indication: Cardiac: dizziness and/or near-syncope Procedure Staff Referring Physician: Climbing Guide: Aleksey Cowan RDCS Reading Physician: Figueroa Wilkerson MD Requesting Provider: Ordering Physician: Nicholas Khanna Indication: Cardiac: dizziness and/or near-syncope Measurements Chambers AV/MV Label Value Normal Value Label Value Normal Value LVOT Vmax 1.09 m/s (0.7m/s - 1.1m/s) AV PGmax 7 mmHg LVOTd 1.9 cm (1.8cm - 2cm) AV PGmean 4 mmHg LVOT VTI 18.3 cm (18cm - 22cm) AV Vmax 1.32 m/s LVDd, 2D 3.9 cm (3.9cm - 5.3cm) SILVANA (Vmax) 2.3 cm2 LVDs, 2D 2.3 cm (2.1cm - 4cm) SILVANA (VTI) 2.4 cm2 IVSd, 2D 0.9 cm (0.6cm - 1.1cm) MV E Vmax 0.81 m/s LVPWd, 2D 1 cm MV A Vmax 0.87 m/s LVEF, 2D 73 % (54% - 74%) MV E/A 0.93 LVOT PGmean 2 mmHg MV E/E' lateral 23 LVOT Vmean 0.67 m/s MV E/E' septal 27.7 (0.45 - 1.25) RVDd, 2D 2.1 cm (1.9cm - 3.8cm) MV E' septal 0.03 m/s LA Volume, BP 61 ml (22ml - 52ml) MV E' lateral 0.04 m/s LADs, 2D 3.2 cm (2.7cm - 3.8cm) MV E/E' mean 23.14 LAESV index, BP 38.6 ml/m2 MV E' mean 0.04 m/s Additional Vessels TV/PV Label Value Normal Value Label Value Normal Value AoRoot, MM 2.4 cm (2.2cm - 3.7cm) RA Pressure 5 mmHg RVSP 37 mmHg TR Pmax 32 mmHg Patient: OKSANA CHEEMA Study Date: 12/01/2018 Page 1 of 3 08:45 AM TR Vmax 2.81 m/s OK End farah Antonio 1.37 cm/s PV PGmax 2 mmHg PV Vmax, [place] 0.62 m/s (0.6m/s - 0.9m/s) Conclusions Left Ventricle: Left ventricle is normal in size. EF range is estimated at 75 % - 80 %. There are no regional wall motion abnormalities. Grade II Diastolic Dysfunction. Right Ventricle: Right ventricular systolic function is normal. Mitral Valve: Mild to moderate mitral regurgitation. Aortic Valve: The aortic valve is trileaflet. Tricuspid Valve: Mild to moderate tricuspid regurgitation. Right Ventricular systolic pressure is measured at 37 mmHg. Pericardium: No pericardial effusion. Findings Left Ventricle: Left ventricle is normal in size. Normal global systolic left ventricular function. The EF is visually estimated to be 80 %. EF range is estimated at 75 % - 80 %. There is mild concentric left ventricular hypertrophy. There are no regional wall motion abnormalities. Grade II Diastolic Dysfunction. Right Ventricle: Normal size right ventricle. Right ventricular systolic function is normal. Left Atrium: The left atrium is mildly dilated. Right Atrium: The right atrium is normal in size. Mitral Valve: Mitral valve appears structurally normal. Mild to moderate mitral regurgitation. There is mild mitral calcification. Aortic Valve: Aortic leaflets are structurally normal. Trivial aortic regurgitation is present. There is no aortic stenosis. The aortic valve is trileaflet. Tricuspid Valve: Tricuspid valve leaflets are structurally normal. Mild to moderate tricuspid regurgitation. Right Ventricular systolic pressure is measured at 37 mmHg. Pulmonary artery pressure is upper limits of normal. Pulmonic Valve: Pulmonic leaflets are normal in appearance and function. No pulmonic valve regurgitation is evident. Aorta: The aorta is normal. The aortic root size in M-mode measures 2.4 cm. Aorta Measurements Patient: OKSANA CHEEMA Study Date: 12/01/2018 Page 2 of 3 08:45 AM AoRoot, MM is 2.4 cm. Pericardium: No pericardial effusion. Exam Details Procedure Ordered: Echo Image Quality: Good (No Signature Object) Patient: OKSANA CHEEMA Study Date: 12/01/2018 Page 3 of 3 08:45 AM [id number]
--- NOTE | 2018-12-01 13:22 | ASMTCMCOM ---
CM Note CM Note Notes: Patient admitted via ED after feeling dizzy and lightheaded. History for CHF noted. Patient has been evaluated and is ok to discharge to home no needs, CM available should needs arise. Plan: DC to home. Date Signed: 12/01/2018 01:22 PM Electronically Signed By:Elizabeth Mercedes RN
--- NOTE | 2018-12-01 13:53 | GCON ---
[f rep st] CONSULTATION CHEST CONSULTATION REASON FOR ADMISSION: Dizziness and near syncope caused by coughing. HISTORY OF PRESENT ILLNESS: The patient is a very pleasant 83-year-old white female, well known to m yself, with a past medical history, including chronic obstructive pulmonary disease for which I see h er in the office, cardiomyopathy, pulmonary hypertension, fibromyalgia, hypertension, chronic hypoxem ic respiratory failure, and rheumatoid arthritis. She was admitted with syncope. In discussion with patient, she states she had a cough for approximately 6 weeks duration. This is m ostly nonproductive, but occasionally productive of just some plain white mucus. There is no hemopty sis. She denies any chest pain, pleuritic-type chest pain, or angina equivalent. There is no fever or night sweats. She is not more breathless than usual, except when she is coughing, and her oxygen requirements are unchanged. She continues Anoro Ellipta with great success. She states the cough is throughout the day, but occasionally awakens her at night, at which time on the night before her adm ission, she became dizzy. REVIEW OF SYSTEMS: Ten-point review of systems is performed and negative, except for what is listed in HPI. FAMILY HISTORY: Noncontributory. PAST MEDICAL HISTORY: As above. SOCIAL HISTORY: Previous smoker, none for many years. Minimal alcohol use. She is with calderon hobbs. MEDICATIONS: At home, include Anoro, acetazolamide, levothyroxine, Lunesta, spironolactone, torsemid e, and tramadol. PHYSICAL EXAM: VITAL SIGNS: Blood pressure is 126/73, pulse 85, respirations 18, temperature 36.4, oxygen saturation 91% on 4 L. GENERAL: She is a thin, but well-developed elderly white female who i s resting comfortably on nasal cannula oxygen. HEENT: Eyes: JESSICA, EOMI. Throat shows no erythema or tonsillar hypertrophy. NECK: Supple with no cervical adenopathy. HEART: Regular rate and rhyth m with a 2/6 at the systolic murmur left sternal border without radiation. LUNGS: Diminished breath sounds, a few bibasilar crackles left greater than right. There is a prolongation of expiratory pha se, but no wheeze. ABDOMEN: Soft, nontender. Bowel sounds are present. EXTREMITIES: No clubbing, cyanosis, or edema. LABORATORY/IMAGING: White count is 8.2, hemoglobin 15, hematocrit 45, platelet count 237. Sodium 13 4, potassium 4.0, chloride 87, CO2 is 34, BUN 23, creatinine 0.8, glucose is 96. Urinalysis is negat lulu. Chest x-ray shows some vascular prominence with pulmonary edema. There is a shaggy right-sided heart border. Diaphragms are somewhat flat. IMPRESSION: 1. Chronic obstructive pulmonary disease. 2. Cough. This etiology of which is unclear, though chronic obstructive pulmonary disease most like ly. Must take into consideration some form of interstitial lung disease. 3. Abnormal CT scan. 4. Congestive heart failure. 5. Hypertension. 6. Rheumatoid arthritis. 7. History of temporal cell arteritis. 8. Hypothyroidism. RECOMMENDATION: 1. Continue frequent nebulizers using both albuterol and Atrovent. 2. Robitussin cough syrup. 3. Will obtain a high-resolution CT scan of the chest. 4. She will see me quickly in the office upon discharge. /[id number]/MODL
[2018-12-01] MEDS ORDERED: traMADol 50 MG TAB PO SCH (16:00)
--- NOTE | 2018-12-01 17:38 | PDDCSUM ---
Discharge Summary Discharge Summary: Date of Admission: 11/30/2018 Date of Discharge: 12/01/2018 Consults: Cardiology, Pulmonology Procedures: CXR, HRCT Chest Followup: Cardiology, Pulmonology Hospital Course Problem List: 83 yo F w/ hx of COPD, dCHF, CHRF, and chronic leg edema presents with dizziness. Plan: 1. Elevated troponin - Troponin 0.29 on admission. Trended up to 0.337. Patient denies any recent episodes of chest pain. It is possible this represents demand ischemia, likely from CHF - Monitored on telemetry with no acute events - Cardiology consulted who recommended followup with primary supervisor cd area, Dr. Johnson to further evaluate based on TTE, clinical history, and EKG 2. Chronic diastolic heart failure - Last TTE in July was essentially normal with mildly increased RVSP (39-44 mm Hg). She has been on torsemide for several months for chronic lower extremity edema, which is now resolved. Her diuretic dose was changed from daily to MWF one week ago by PCP due to orthostasis symptoms. Her BNP is elevated (4960) but she appears euvolemic on exam. - TTE performed which showing EF 75-80%, Grade II Diastolic Dysfunction - CXR and CT Chest performed during admission c/w pulmonary edema, increased home diuretic regimen back to daily dosing rather than MWF, will have close followup with Cardiology and Pulmonology to continue to monitor and titrate diuretic dosing 3. COPD, CHRF - On 3 L/min O2 chronically, currently stable on the same. - Continue home medications - Continue O2 3 L/min via [place] 4. Hx temporal cell arteritis - No longer on treatment for this. 5. Psoriatic arthritis - NSAIDs PRN as an outpatient. 6. Hypothyroid - Continue LTX
[2018-12-02] MEDS ORDERED: SPIRONOLACTONE 25 MG TAB PO SCH ×2 (04:00→09:00)
[2018-12-02] MEDS ORDERED: FUROSEMIDE 20 MG TAB PO SCH ×2 (04:00→09:00)
[2018-12-02] MEDS ORDERED: LEVOTHYROXINE 125 MCG TAB PO SCH (06:00)
[2018-12-02] MEDS ORDERED: UMECLIDINIUM BRM IH SCH (09:00)
[2018-12-02] MEDS ORDERED: VILANTEROL TR IH SCH (09:00)
[2018-12-02] MEDS ORDERED: FLUTICASONE NASAL 120 SPRAYS/16 GM MDI EACHNARE SCH (09:00)
[2018-12-03] MEDS ORDERED: LEVOTHYROXINE 25 MCG TAB PO SCH (06:00)
== END 2018-12-01 16:23 | disposition home or self-care (01) ==
LOC: EDUNIT# → F2W 05:14
PROVIDERS: ADMIT Student in an Organized Health Care Education/Training Program; ATTEND Internal Medicine
DX: I50.32 Chronic diastolic (congestive) heart failure (principal); R78.89 Finding of other specified substances, not normally found in blood; I11.0 Hypertensive heart disease with heart failure; J44.9 Chronic obstructive pulmonary disease, unspecified; I27.29 Other secondary pulmonary hypertension; J96.11 Chronic respiratory failure with hypoxia; Z99.81 Dependence on supplemental oxygen; L40.52 Psoriatic arthritis mutilans; E03.9 Hypothyroidism, unspecified; K21.9 Gastro-esophageal reflux disease without esophagitis; Z87.891 Personal history of nicotine dependence; Z85.850 Personal history of malignant neoplasm of thyroid; Z96.653 Presence of artificial knee joint, bilateral; Z96.612 Presence of left artificial shoulder joint
CPT/HCPCS: 71046; 71250; 93005; 93306; 96372; 99285; G0378; J1650; 84484-ER

== ENCOUNTER → 2018-12-27 | Outpatient (CLI) | payer OTHER, BC | LOC: FIMAGING 10:07 ==